=== PATIENT | male | born 1975 | race Two or more races ===

== ENCOUNTER 2018-10-28 15:58 | Emergency (ER) | payer MEDICAID, OTHER ==
[~2018-10-28] VITALS: Ht 195.6 cm; Wt 136.1 kg
[2018-10-28 17:06] VITALS: BP 156/97
== END 2018-10-28 17:12 | disposition home or self-care (01) ==
LOC: ER 16:04
DX: S60.031A Contusion of right middle finger without damage to nail, initial encounter (principal); I10 Essential (primary) hypertension; W20.8XXA Other cause of strike by thrown, projected or falling object, initial encounter; Y93.89 Activity, other specified; Y92.89 Other specified places as the place of occurrence of the external cause; Y99.8 Other external cause status
CPT/HCPCS: 73130

== ENCOUNTER 2018-11-20 16:53 | Emergency (ER) | payer MEDICAID ==
[~2018-11-20] VITALS: Ht 195.6 cm; Wt 131.5 kg
[2018-11-20 17:00] VITALS: BP 136/103
[2018-11-20] MEDS ORDERED: SODIUM CHLORIDE 0.9% 1,000 ML IV ONE ×2 (17:45→20:30)
[2018-11-20 19:01] LABS: Basophils # (auto) 0 uL; Basophils % (auto) 0.4 % (0.0-2.0); Eosinophils # (auto) 0.3 uL; Eosinophils % (auto) 5.8 % (0.0-7.0); Hematocrit 49.7 % (41.0-53.0); Hemoglobin 16.7 g/dL (13.5-17.5); Lymphocytes # (auto) 2.6 uL; Lymphocytes % (auto) 45.4 % (10.0-50.0); Mean Corpuscular Hemoglobin 30.1 pg (28.0-32.0); Mean Corpuscular Hgb Conc. 33.6 g/dL (32.0-36.0); Mean Corpuscular Volume 89.6 fL (80.0-100.0); Monocytes # (auto) 0.7 uL; Monocytes % (auto) 11.9 % (0.0-12.0); Neutrophils # (auto) 2.1 uL; Neutrophils % (auto) 36.5 % (37.0-80.0); Nucleated Red Blood Cells % 0.4 %; Platelet Count (auto) 223 10^3/uL (140-450); Red Blood Cells 5.54 10^6/uL (4.5-5.90); Red Cell Distribution Width 13.1 % (11.8-14.3); White Blood Cell 5.7 10^3/uL (4.4-10.8)
[2018-11-20 19:09] LABS: Albumin 4.2 g/dL (3.4-5.0); Anion Gap 11 (5-15); Blood Urea Nitrogen 12 mg/dL (7-18); Calcium 8.9 mg/dL (8.5-10.1); Carbon Dioxide 22 mmol/L (21-32); Chloride 102 mmol/L (98-107); Glucose 109 mg/dL (74-106); Potassium 3.4 mmol/L (3.5-5.1); Sodium 135 mmol/L (136-145)
[2018-11-20 19:14] LABS: Alanine Aminotransferase 127 U/L (16-61); Alkaline Phosphatase 111 U/L (45-117); Aspartate Aminotransferase 121 U/L (15-37); BUN/Creatinine Ratio 10.1; Bilirubin, Total 0.8 mg/dL (0.2-1.0); GFR African American 86 mL/min; GFR Non-African American 71 mL/min; Total Protein 9.6 g/dL (6.4-8.2)
[2018-11-20 19:41] LABS: Amphetamine Screen, Urine NEGATIVE (NEGATIVE); Barbiturate Scree,Urine NEGATIVE (NEGATIVE); Benzodiazephine Screen, Urine NEGATIVE (NEGATIVE); Cannabinoid Screen, Urine NEGATIVE (NEGATIVE); Cocaine Screen, Urine NEGATIVE (NEGATIVE); Opiate Scree,Urine NEGATIVE (NEGATIVE); Phencyclidine Screen, Urine NEGATIVE (NEGATIVE)
[2018-11-20 19:44] LABS: Urine Bacteria FEW /hpf (None Seen); Urine Blood Negative /uL (Negative); Urine Hyaline Cast MOD /lpf (0 - 2); Urine Mucus FEW (None Seen); Urine Specific Gravity 1.009 (1.001-1.035); Urine WBC <1 /hpf (0 - 3)
[2018-11-20] MEDS ORDERED: FOLIC ACID 1 MG, MULTIPLE VITAMIN 10 ML, MAGNESIUM SULF SDV 50% 8 MEQ, THIAMINE INJ 100... INJ SCH ×5 (20:30)
== END 2018-11-20 21:58 | disposition home or self-care (01) ==
LOC: ER 16:55
DX: F10.239 Alcohol dependence with withdrawal, unspecified (principal); I10 Essential (primary) hypertension; Y90.9 Presence of alcohol in blood, level not specified
CPT/HCPCS: 36415; 71046; 80053; 80307; 80320; 81001; 84484; 85025; 94761; 99284; J3411; J3475; J7030

== ENCOUNTER 2019-03-20 00:49 | Inpatient (IN) | payer MEDICAID ==
[~2019-03-20] VITALS: Ht 193 cm; Wt 137.1 kg
--- NOTE | 2019-03-20 00:52 | NUR ---
Anxiety Patient feeling anxious and states he has not had a drink today. Administered ativan per MD order. Will continue to monitor. Addendum: 03/21/19 at 0414 by JUAN JOSE STINSON RN RN Actual date 03/21/19 0052
[2019-03-20] MEDS ORDERED: cloNIDine HCL 0.1 MG TAB ONE (01:24)
[2019-03-20] MEDS ORDERED: cloNIDine HCL 0.1 MG TAB PO ONE (01:30)
[2019-03-20 01:39] LABS: Basophils # (auto) 0 uL; Basophils % (auto) 0.3 % (0.0-2.0); Eosinophils # (auto) 0.3 uL; Eosinophils % (auto) 4.1 % (0.0-7.0); Hematocrit 47.2 % (41.0-53.0); Hemoglobin 16.5 g/dL (13.5-17.5); Lymphocytes # (auto) 2.5 uL; Mean Corpuscular Hemoglobin 30.8 pg (28.0-32.0); Mean Corpuscular Hgb Conc. 34.9 g/dL (32.0-36.0); Mean Corpuscular Volume 88.1 fL (80.0-100.0); Monocytes # (auto) 0.8 uL; Monocytes % (auto) 12.4 % (0.0-12.0); Neutrophils # (auto) 2.9 uL; Neutrophils % (auto) 44.2 % (37.0-80.0); Nucleated Red Blood Cells % 0.1 %; Platelet Count (auto) 218 10^3/uL (140-450); Red Blood Cells 5.36 10^6/uL (4.5-5.90); Red Cell Distribution Width 13.1 % (11.8-14.3); White Blood Cell 6.5 10^3/uL (4.4-10.8)
[2019-03-20 01:56] LABS: Albumin 3.7 g/dL (3.4-5.0); BUN/Creatinine Ratio 15.3; Calcium 9.5 mg/dL (8.5-10.1); Potassium 3.6 mmol/L (3.5-5.1)
[2019-03-20 01:59] LABS: Bilirubin, Total 1.1 mg/dL (0.2-1.0); Total Protein 8.8 g/dL (6.4-8.2)
[2019-03-20] MEDS ORDERED: SODIUM CHLORIDE 0.9% 1,000 ML IV ONE (03:45)
[2019-03-20 05:12] LABS: Urine WBC None Seen /hpf (0 - 3)
[2019-03-20 05:30] LABS: Urine Bacteria NONE SEEN /hpf (None Seen); Urine Blood Negative /uL (Negative)
[2019-03-20] MEDS ORDERED: ONDANSETRON HCL 4 MG/2 ML VIAL IV PRN (09:00)
[2019-03-20] MEDS ORDERED: ACETAMINOPHEN 500 MG TAB PO PRN (09:00)
[2019-03-20] MEDS ORDERED: MORPHINE SULF INJ 2 MG/ML SYRINGE 1ML IV PRN (09:00)
[2019-03-20] MEDS ORDERED: IPRATROPIUM BROM 0.5 MG/2.5ML INH SOL NEB PRN (09:00)
[2019-03-20] MEDS ORDERED: ALBUTEROL SULF 2.5 MG/0.5ML(0.5%) NEB SOLN NEB PRN (09:00)
[2019-03-20 10:00] VITALS: BP 152/82
[2019-03-20] MEDS: FAMOTIDINE (10MG/ML) 2ML VL IV SCH ×2 (10:09→22:02)
[2019-03-20] MEDS ORDERED: amLODIPine BESYLATE 5 MG TAB PO ONE (10:30)
[2019-03-20] MEDS ORDERED: hydrALAZINE HCL 20 MG/ML VL IV PRN (10:30)
--- NOTE | 2019-03-20 11:00 | NUR ---
MS admit from ER AKIRA ARCHER JR admitted to tele/MS after SBAR received. Patient oriented to COURTNEY WANG, primary RN, unit, room, bed, and unit policies regarding patient care and visiting hours. Patient weighed by bed scale and encouraged to call if they need something. All questions and concerns addressed, patient verbalized understanding.
[2019-03-20 11:30] VITALS: BP 156/105
[2019-03-20 12:00] VITALS: BP 156/105
[2019-03-20] MEDS: FOLIC ACID 1 MG, MULTIPLE VITAMIN 10 ML, MAGNESIUM SULF SDV 50% 8 MEQ, THIAMINE INJ 100... INJ SCH ×5 (12:09)
[2019-03-20 17:00] VITALS: BP 158/96
--- NOTE | 2019-03-20 18:41 | NUR ---
PT ASSESSED FOR PRN MED NEB TX. SPO2 95% ON RA, HR 82. PT DENIES ANY RESPIRATORY DISTRESS. NO TX INDICATED AT THIS TIME. PT IS AWARE TO HAVE RT PAGED IF TX NEEDED.
--- NOTE | 2019-03-20 19:36 | NUR ---
Opening Shift Note Received report and assumed care of patient. Patient is awake and alert, currently denies pain. No signs or symptoms of distress noted. Instructed patient to call for assistance as needed, call light placed within reach. Will continue to monitor.
[2019-03-20 20:00] VITALS: BP 158/107
[2019-03-20 22:00] VITALS: BP 158/107
--- NOTE | 2019-03-20 23:04 | NUR ---
High BP Patient blood pressure assessed to be 168/104 Administered hydralazine 10mg per MD order. Reassessed BP to be 154/94
[2019-03-21] MEDS: LORazepam 2MG/ML-1ML VIAL IV PRN ×2 (00:51→13:24)
[2019-03-21 05:18] VITALS: BP 155/92
[2019-03-21 07:07] LABS: Basophils # (auto) 0 uL; Basophils % (auto) 0.4 % (0.0-2.0); Eosinophils # (auto) 0.4 uL; Hematocrit 45.3 % (41.0-53.0); Hemoglobin 15.7 g/dL (13.5-17.5); Lymphocytes # (auto) 1.8 uL; Lymphocytes % (auto) 45.7 % (10.0-50.0); Mean Corpuscular Hemoglobin 30.9 pg (28.0-32.0); Mean Corpuscular Hgb Conc. 34.7 g/dL (32.0-36.0); Mean Corpuscular Volume 89.1 fL (80.0-100.0); Monocytes # (auto) 0.5 uL; Monocytes % (auto) 12.6 % (0.0-12.0); Neutrophils # (auto) 1.3 uL; Neutrophils % (auto) 32.3 % (37.0-80.0); Nucleated Red Blood Cells % 0.2 %; Platelet Count (auto) 183 10^3/uL (140-450); Red Blood Cells 5.09 10^6/uL (4.5-5.90); Red Cell Distribution Width 13.1 % (11.8-14.3)
[2019-03-21 07:27] LABS: INR 1.12 (0.9-1.15); Partial Thromboplastin Time 27.2 sec (23.64-32.05)
[2019-03-21 07:30] LABS: Potassium 3.6 mmol/L (3.5-5.1)
[2019-03-21 07:45] LABS: Albumin 3.6 g/dL (3.4-5.0); BUN/Creatinine Ratio 14.3; Calcium 8.6 mg/dL (8.5-10.1)
[2019-03-21 07:47] LABS: Bilirubin, Total 1.5 mg/dL (0.2-1.0); Total Protein 7.7 g/dL (6.4-8.2)
--- NOTE | 2019-03-21 08:30 | NUR ---
Opening Shift Note Assumed care of patient, awake and alert. No S/S of distress/SOB or pain. Instructed on POC and to call for assist PRN, will continue to monitor for changes Q1hr and PRN.
[2019-03-21 09:00] VITALS: BP 154/81
[2019-03-21] MEDS: FAMOTIDINE (10MG/ML) 2ML VL IV SCH (09:30)
[2019-03-21 09:36] VITALS: BP 145/107
[2019-03-21] MEDS: FOLIC ACID 1 MG, MULTIPLE VITAMIN 10 ML, MAGNESIUM SULF SDV 50% 8 MEQ, THIAMINE INJ 100... INJ SCH ×5 (11:41)
[2019-03-21] MEDS ORDERED: PIPERACILLIN-TAZOB 3.375GM 100 ML IV SCH (12:00)
[2019-03-21] MEDS ORDERED: hydrALAZINE HCL 20 MG/ML VL IV SCH (12:00)
[2019-03-21] MEDS ORDERED: METOPROLOL TARTRATE 1MG/1ML-5ML VIAL IV SCH (12:00)
[2019-03-21 13:00] VITALS: BP 161/80
[2019-03-21 14:02] VITALS: BP 144/96
--- NOTE | 2019-03-21 14:37 | NUR ---
Vielka Chen RN CM discussed with patient regarding PCP.
--- NOTE | 2019-03-21 15:40 | NUR ---
Discharge instructions given as ordered. Encourage to follow up with PMD (Vielka Chen given PCP info and patient instructed to call his insurance to get a PCP assign to hime) as instructed. All questions and concerns addressed. Patient verbalized understanding. Medication reconciliation form completed and copy given to patient. IV removed with catheter intact, pressure dressing applied. Patient taken to vehicle via wheelchair with all personal belongings, accompanied by staff and family member. No distress noted at time of departure.
== END 2019-03-21 15:40 | disposition home or self-care (01) ==
LOC: ER 00:51 → OVERFLOW 00:52 → WEST WING 10:44
PROVIDERS: ADMIT Nurse Practitioner Acute Care; ATTEND Internal Medicine
DX: K80.20 Calculus of gallbladder without cholecystitis without obstruction (principal); N17.0 Acute kidney failure with tubular necrosis; K72.90 Hepatic failure, unspecified without coma; K76.0 Fatty (change of) liver, not elsewhere classified; N18.3 Chronic kidney disease, stage 3 (moderate); E66.9 Obesity, unspecified; E86.0 Dehydration; F17.210 Nicotine dependence, cigarettes, uncomplicated; I12.9 Hypertensive chronic kidney disease with stage 1 through stage 4 chronic kidney disease, or unspecified chronic kidney disease; K52.9 Noninfective gastroenteritis and colitis, unspecified; F10.20 Alcohol dependence, uncomplicated; K42.9 Umbilical hernia without obstruction or gangrene; Z79.899 Other long term (current) drug therapy
CPT/HCPCS: 36415; 74176; 76705; 80053; 81001; 82150; 83036; 83690; 85025; 85610; 85730; 96361; 96365; 96375; G0378; J2405; J2543; J3490

== ENCOUNTER 2019-12-24 20:02 | Emergency (ER) | payer MEDICAID ==
[~2019-12-24] VITALS: Ht 195.6 cm; Wt 140.6 kg
[2019-12-25] MEDS ORDERED: TETANUS-DIPTH-ACEL PERTUSSIS 0.5ML SYR Tdap IM ONE (02:58)
[2019-12-25 03:36] VITALS: BP 136/86
== END 2019-12-25 04:18 | disposition home or self-care (01) ==
LOC: ER 20:02
DX: S91.332A Puncture wound without foreign body, left foot, initial encounter (principal); I10 Essential (primary) hypertension; F17.210 Nicotine dependence, cigarettes, uncomplicated; F10.20 Alcohol dependence, uncomplicated; Y90.9 Presence of alcohol in blood, level not specified; W22.8XXA Striking against or struck by other objects, initial encounter; Y93.89 Activity, other specified; Y92.89 Other specified places as the place of occurrence of the external cause; Y99.8 Other external cause status
CPT/HCPCS: 90471; 90715

== ENCOUNTER 2021-04-20 06:46 | Emergency (ER) | payer MEDICAID ==
[~2021-04-20] VITALS: Ht 193 cm; Wt 140.6 kg
[2021-04-20 09:27] LABS: Basophils # (auto) 0 10 ^3/uL (0-0.2); Basophils % (auto) 0.2 % (0.0-2.0); Eosinophils # (auto) 0.3 10 ^3/uL (0-0.8); Eosinophils % (auto) 6.5 % (0.0-7.0); Hematocrit 43.5 % (41.0-53.0); Lymphocytes # (auto) 1.9 10 ^3/uL (0.4-5.4); Lymphocytes % (auto) 47.4 % (10.0-50.0); Mean Corpuscular Hemoglobin 31.1 pg (28.0-32.0); Mean Corpuscular Hgb Conc. 34.5 g/dL (32.0-36.0); Mean Corpuscular Volume 90.2 fL (80.0-100.0); Monocytes # (auto) 0.6 10 ^3/uL (0-1.3); Monocytes % (auto) 14.7 % (0.0-12.0); Neutrophils # (auto) 1.3 10 ^3/uL (1.6-8.6); Neutrophils % (auto) 31.2 % (37.0-80.0); Nucleated Red Blood Cells % 0.3 %; Red Blood Cells 4.83 10^6/uL (4.5-5.90); Red Cell Distribution Width 13.1 % (11.8-14.3); White Blood Cell 4.1 10^3/uL (4.4-10.8)
[2021-04-20 10:01] LABS: BUN/Creatinine Ratio 13.7; Potassium 4.5 mmol/L (3.5-5.1)
[2021-04-20 10:02] LABS: Albumin 3.7 g/dL (3.4-5.0); Bilirubin, Total 0.5 mg/dL (0.2-1.0); Calcium 8.9 mg/dL (8.5-10.1); Total Protein 8.3 g/dL (6.4-8.2)
[2021-04-20 11:01] VITALS: BP 166/93
== END 2021-04-20 11:16 | disposition home or self-care (01) ==
LOC: ER 06:46
DX: R07.2 Precordial pain (principal); I10 Essential (primary) hypertension; F17.210 Nicotine dependence, cigarettes, uncomplicated
CPT/HCPCS: 36415; 71045; 80053; 83880; 84484; 85025; 93005